=== PATIENT | male | born 1950 | race Caucasian/White ===

== ENCOUNTER → 2021-12-27 | Outpatient (CLI) | payer MEDICARE, OTHER ==
[~2021-12-27] MED LIST: ASPIRIN EC81 MG PO; COZAAR100 MG PO; ELIQUIS5 MG PO; ISOSORBIDE MONO30 MG PO; NORVASC5 MG PO; PROTONIX40 MG PO; TOPROL XL 50 MG50 MG PO; ZETIA10 MG PO
[2021-12-27 08:52] LABS: HEMOGLOBIN 14.1 gm/dl (14.0-17.5); RED BLOOD COUNT 4.66 M/UL (4.20-5.50); WHITE BLOOD COUNT 5.5 K/UL (4.5-11.0)
== END ==
LOC: OPSV2 07:56
PROVIDERS: Orthopaedic Surgery
DX: Z01.818 Encounter for other preprocedural examination (principal); G56.01 Carpal tunnel syndrome, right upper limb
CPT/HCPCS: 71046; 80048; 85027; 93005

== ENCOUNTER → 2022-01-03 | Day surgery (SDC) | payer MEDICARE, OTHER | END | disposition home or self-care (01) | LOC: OR 05:21 | DX: G56.01 Carpal tunnel syndrome, right upper limb (principal); G89.29 Other chronic pain; I11.9 Hypertensive heart disease without heart failure; E78.5 Hyperlipidemia, unspecified; I48.91 Unspecified atrial fibrillation; Z88.8 Allergy status to other drugs, medicaments and biological substances; Z79.01 Long term (current) use of anticoagulants; Z79.899 Other long term (current) drug therapy | CPT/HCPCS: J0690; J1100; J2001; J2250; J2405; J2704; J3010 ==